=== PATIENT | female | born 1950 | race Caucasian/White ===

== ENCOUNTER 2020-03-23 09:54 | Day surgery (SDC) | payer MEDICARE, SELFPAY ==
--- NOTE | 2020-03-22 11:50 | HO.ANESPROP2 ---
Documented by User: Jennifer Wilhelm 03/22/20 11:51 HPI - Anesthesia Eval Consult details Narrative: 69yo F for Colonoscopy PMFSH Past Medical History Medical History Arthritis Asthma GERD (gastroesophageal reflux disease) Headache History of diverticulitis Insomnia Major depressive disorder Osteopenia Surgical History Surgical History Hx of hysterectomy Social History Social History Smoking Status: Never smoker Use of substances other than those prescribed or required for medical reasons: No Advance Directives: No Meds Allergies Allergy/AdvReac Type Severity Reaction Status Date / Time No Known Allergies Allergy Verified 03/22/20 11:52 Home Medications Medication Instructions Recorded Confirmed Type acetaminophen 500 mg PO Q6H PRN 03/19/20 03/19/20 History albuterol sulfate [ProAir HFA] 2 puff INHALATION Q6H PRN 03/19/20 03/19/20 History amitriptyline 1 tab PO DAILY 03/19/20 03/19/20 History calcium carbonate-vitamin D3 1 tab PO DAILY 03/19/20 03/19/20 History fluticasone propionate [Flovent 1 puff PO BID 03/19/20 03/19/20 History HFA] omeprazole 1 cap PO DAILY 03/19/20 03/19/20 History Exam Exam Date and Time: March 22, 2020 1150 Assessment and Plan Assessment Anesthesia Assessment: Chart Reviewed Documented by User: Sunita Henriquez 03/23/20 12:15 [facility] Past Medical History Medical History Arthritis Asthma GERD (gastroesophageal reflux disease) Headache History of diverticulitis Insomnia Major depressive disorder Osteopenia Family History Family history of problems with anesthesia: No Surgical History Surgical History Hx of hysterectomy History of Problems with Anesthesia: No Social History Social History Smoking Status: Never smoker Use of substances other than those prescribed or required for medical reasons: No Advance Directives: No Meds Allergies Allergy/AdvReac Type Severity Reaction Status Date / Time No Known Allergies Allergy Verified 03/22/20 11:52 Home Medications Medication Instructions Recorded Confirmed Type acetaminophen 500 mg PO Q6H PRN 03/19/20 03/19/20 History albuterol sulfate [ProAir HFA] 2 puff INHALATION Q6H PRN 03/19/20 03/19/20 History amitriptyline 1 tab PO DAILY 03/19/20 03/19/20 History calcium carbonate-vitamin D3 1 tab PO DAILY 03/19/20 03/19/20 History fluticasone propionate [Flovent 1 puff PO BID 03/19/20 03/19/20 History HFA] omeprazole 1 cap PO DAILY 03/19/20 03/19/20 History Exam Height,Weight and Vital Signs: Vital Signs Temp Pulse Resp BP Pulse Ox 03/23/20 10:54 97.4 F 82 16 137/72 100 Airway Mallampati Class: II TM Dist: >3cm Neck ROM: Full Partial: Lower Heart: RRR Lungs: CTAB Assessment and Plan Assessment Anesthesia Assessment: Anesthesia Plan Discussed Final Anesthetic Review NPO: Yes ASA Class: II Final Preanesthetic Review: No Changes in Pt Med Stat, Meds/Allgs Chart Reviewed, Consent Obtained/Reviewed and Anes Risks/Benef Reviewed Patient Risk: Low Procedure Risk: Low Anesthetic Plan Anesthetic Plan: MAC: Disposition: Standard PACU
[2020-03-23 10:54] VITALS: BP 137/72; PULSE 82; RESP 16; TEMP 36.3; O2SAT 100
[2020-03-23] MEDS: Lactated Ringers 1,000 ML 100 ML IVCONT (10:57)
[2020-03-23 11:09] VITALS: BMI 23.0
--- NOTE | 2020-03-23 12:48 | PM.PROC ---
Brief Operative Note Date of procedure: 03/23/20 Pre-op diagnosis: colonoscopy Post-op diagnosis: other (Colonic polyp, sigmoid divertculi--extrinsic adhesions) Procedure: COLONOSCOPY WITH EXCISIONAL POLYPECTOMY--CBX FORCEPS. Patient left to back to right to back to left. Anesthesia: MAC (MAXIM EDWARD) Surgeon: Galina William Estimated blood loss (mL): 5 Pathology: other (Transverse colon polyp) Condition: stable Disposition: PACU
[2020-03-23 13:40] VITALS: BP 97/43; PULSE 86; RESP 12; TEMP 36.3; O2SAT 100
[2020-03-23 13:55] VITALS: BP 122/65; PULSE 90; RESP 16; O2SAT 100
--- NOTE | 2020-03-26 12:27 | OP_ITS ---
SURGEON: Galina William MD PREOPERATIVE DIAGNOSIS: See below POSTOPERATIVE DIAGNOSIS: Colonic Polyp. PROCEDURE PERFORMED: Colonoscopy with excisional polypectomy using cold biopsy forceps. ESTIMATED BLOOD LOSS: Minimal blood loss. COMPLICATIONS:NONE ANESTHESIA: Monitored. ASSISTANTS: No mechanic assistant. SPECIMENS: Specimen removed; polyp, transverse colon. PREOPERATIVE DIAGNOSES: The patient is referred to our office for colon cancer screening. She has underlying medical histories as listed. 1. Mild asthma. 2. Gastroesophageal reflux disease (she is taking omeprazole daily). Surgical history is pertinent for hysterectomy in the past. 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 ANESTHESIOLOGISTS: Gabbi Lei CRNA/Dr. Henriquez. FINDINGS: Digital rectal exam revealed no specific lesion. Video colonoscope was introduced without difficulty; however, from the start, the colon was somewhat telescoped in the region of the rectosigmoid, requiring slow movement through this area, extrinsic abdominal pressure to facilitate movement as we progressed. The patient was initially started on her left side, moved to her back, and to her right side and back to the back, and to the left side. We were able to complete the exam to just above the ileocecal valve. In the distance, we could see we had a 50% view of the cecal cap itself. Prep was good. There was a polyp visualized in the transverse colon which we were able to remove it excisionally with cold bx forceps. Pathology on this polyp is at the time of this dictation Tubular adenoma with no high-grade dysplasia. Scope continued to be withdrawn. . Air and fluid were suctioned out. Anorectal verge was clear. PLAN AND CURRENT RECOMMENDATIONS: Repeat asymptomatic screening in a patient with a tubular adenoma will be 5 years. GRAFT OR IMPLANTS: No grafts or implants. CONDITION: Postprocedure, stable. Galina William MD MEN/MODL / [id number] [facility]
== END 2020-03-23 15:10 | disposition home or self-care (01) ==
PROVIDERS: PCP Hospitalist; Visit Provider Internal Medicine Gastroenterology
PROC: 0DJD8ZZ Inspection of Lower Intestinal Tract, Via Natural or Artificial Opening Endoscopic (ICD-10-PCS; CPT 45378; principal; 2020-03-23 10:50)
DX: Z12.11 Encounter for screening for malignant neoplasm of colon (principal); D12.3 Benign neoplasm of transverse colon; K57.30 Diverticulosis of large intestine without perforation or abscess without bleeding; K66.0 Peritoneal adhesions (postprocedural) (postinfection); K21.9 Gastro-esophageal reflux disease without esophagitis; J45.909 Unspecified asthma, uncomplicated; Z79.899 Other long term (current) drug therapy
CPT/HCPCS: 45380; 88305; J2765

== ENCOUNTER 2020-05-05 08:51 | Outpatient (REF) | payer MEDICARE, SELFPAY ==
[2020-05-05 10:35] LABS: Glucose Urine UA NEG (NEG); Leukocyte Esterase Urine NEG (NEG); Nitrite Urine NEG (NEG); Specific Gravity - Urine <= 1.005 (1.005-1.025); Urine Blood NEG (NEG); Urine Ketones NEG (NEG); Urine Protein NEG (NEG-TRACE)
[2020-05-05 10:40] LABS: Appearance Urine CLEAR; Color Urine STRAW
[2020-05-05 10:49] LABS: Hematocrit 43.8 % (37-47); Hemoglobin 14.2 g/dl (12.0-16.0); Mean Corpuscular HGB Conc 32.4 g/dl (31.0-35.0); Mean Corpuscular Hemoglobin 31.6 pg (27.0-33.0); Mean Corpuscular Volume 97.3 fL (80-98); Platelet Count 279 X10*3/uL (160-400); Red Cell Distribution Width 13.2 % (11.0-16.0); White Blood Count 5.2 X10*3/uL (4.8-10.8)
[2020-05-05 11:01] LABS: Alanine Aminotransferase 23 U/L (0-31); Albumin Level 4.7 g/dL (3.5-5.0); Alkaline Phosphatase 85 U/L (39-117); Anion Gap 12 (12-20); Aspartate Amino Transferase 22 U/L (5-31); Bilirubin Direct 0.2 mg/dL (0.0-0.5); Bilirubin Total 0.6 mg/dL (0.0-1.0); Blood Urea Nitrogen 12 mg/dL (9-16); Calcium 9.5 mg/dL (8.4-10.2); Carbon Dioxide 27 mmol/L (22-29); Chloride 103 mmol/L (96-108); Cholesterol 200 mg/dL; Estimated Glomerular Filt Rate > 60; Glucose Random 90 mg/dL (60-115); HDL Cholesterol 89 mg/dL; LDL Cholesterol Calculated 96 mg/dl; Potassium 4.3 mmol/l (3.3-5.1); Sodium 138 mmol/L (135-145); Total Protein 7.7 g/dL (6.5-8.0); Triglycerides 75 mg/dL
[2020-05-05 11:10] LABS: Thyroid Stimulating Hormone 0.87 uIU/mL (0.32-4.0)
== END 2020-05-05 08:52 | disposition home or self-care (01) ==
LOC: HO.LAB 08:51
PROVIDERS: Visit Provider Hospitalist
DX: Z00.00 Encounter for general adult medical examination without abnormal findings (principal)
CPT/HCPCS: 36415; 80048; 80061; 80076; 81003; 84443; 85027

== ENCOUNTER 2020-12-07 10:07 | Outpatient (REF) | payer MEDICARE, SELFPAY ==
--- NOTE | ~2020-12-07 | MM_ITS ---
EXAMINATION: MM SCREENING DIGITAL BREAST TOMOSYNTHESIS, BILATERAL CLINICAL INFORMATION: Screening. Asymptomatic. The lifetime risk of breast cancer based on the Tyrer-Cuzick Model is 2%. COMPARISON: Mammography: 12/02/2019, 11/26/2018, outside exam 11/12/2017 ([facility]). TECHNIQUE: Digital breast tomosynthesis is performed in both the craniocaudal and mediolateral oblique views along with computer-aided detection (CAD). Synthesized 2D images are generated from the tomosynthesis. FINDINGS: There are scattered areas of fibroglandular density (ACR BI-RADS breast composition Category b). There are no significant masses, abnormal calcifications, or other abnormalities. Parenchymal pattern is similar to prior studies. No developing density. No significant changes. MM/MM tomosynthesis screening BI IMPRESSION: No mammographic evidence of malignancy. ASSESSMENT: BI-RADS 1: Negative RECOMMENDATION: Routine annual mammography screening. This patient's information was entered into a reminder system with a target due date for their next mammogram.
--- NOTE | ~2020-12-07 | MM_ITS ---
EXAMINATION: BONE DENSITOMETRY CLINICAL INDICATION: Screening for osteoporosis. COMPARISON: Baseline BD dated 09/24/2018. TECHNIQUE: Using a SMITH (formerly [employer]) DXA System (software version: 13.1) manufactured by [employer], dual-energy x-ray absorptiometry was performed of the lumbar spine and left hip. The images are of good technical quality. Summary results are attached. FINDINGS: AP SPINE L1-L4: Current: BMD 1.248 g/cm2, Z-score 2.6, T-score 0.6, normal, 3.7% increase from baseline (<5% change is not significant). Baseline: BMD 1.203 g/cm2. LEFT FEMUR, NECK: Current: BMD 0.685 g/cm2, Z-score -0.6, T-score -2.5, osteoporosis. Baseline: BMD 0.781 g/cm2. LEFT FEMUR, TOTAL: Current: BMD 0.832 g/cm2, Z-score 0.3, T-score -1.4, osteopenia, 11.1% decrease from baseline (<5% change is not significant). Baseline: BMD 0.936 g/cm2. IDENTIFIED RISK FACTORS: Menopause, hysterectomy. HISTORY OF FRACTURE: None listed. MEDICATIONS: Calcium supplements or multivitamin, vitamin D. MM/XR DEXA axial skeleton IMPRESSION: 1. DIAGNOSIS: Osteoporosis based on the lowest T-score value of -2.5 in the femoral neck applying World Health Organization criteria. 2. 10-YEAR FRACTURE RISK PREDICTION, FRAX: Major osteoporotic fracture (clinical spine, forearm, hip or shoulder) 8.5%. Hip fracture 2.2%. 3. Treatment Recommendations: NOF guidelines recommend consideration for treatment in postmenopausal women and men age 50 and older presenting with the following: -A hip or vertebral (clinical or morphometric) fracture. -T-score less than or equal to -2.5 at the femoral neck or spine after appropriate evaluation to exclude secondary causes. -Low bone mass at the hip or spine and a 10-year fracture probability by FRAX of greater than or equal to 3% for hip fracture or greater than or equal to 20% for major osteoporotic fracture based on the [place] adapted WHO algorithm. 4. Other Recommendations: All treatment decisions require clinical judgment and consideration of individual patient factors, including patient preferences, comorbidities, previous drug use, risk factors not captured in the FRAX model (e.g. frailty, falls, vitamin D deficiency, increased bone turnover, interval significant decline in bone density) and possible under or overestimation of fracture risk by FRAX. Additional medical evaluation for secondary cause of low bone mineral density may be appropriate. FUTURE SCAN RECOMMENDATION: People with diagnosed cases of osteoporosis or at high risk for fracture should have regular bone mineral density tests. For patients eligible for Medicare, routine testing is allowed once every 2 years. The testing frequency can be increased to one year for patients who have rapidly progressing disease, those who are receiving or discontinuing medical therapy to restore bone mass, or have additional risk factors.
== END 2020-12-07 10:08 | disposition home or self-care (01) ==
LOC: HO.MAMMO 10:07
PROVIDERS: Visit Provider Hospitalist
DX: Z12.31 Encounter for screening mammogram for malignant neoplasm of breast (principal); Z13.820 Encounter for screening for osteoporosis; M81.0 Age-related osteoporosis without current pathological fracture; Z78.0 Asymptomatic menopausal state; Z98.890 Other specified postprocedural states; Z79.899 Other long term (current) drug therapy
CPT/HCPCS: 77063; 77067; 77080

== ENCOUNTER → 2021-09-21 10:20 | Outpatient (BNVA) | payer MEDICARE, SELFPAY | PROVIDERS: Visit Provider Obstetrics & Gynecology | DX: Z01.419 Encounter for gynecological examination (general) (routine) without abnormal findings (principal) ==

== ENCOUNTER → 2021-11-14 08:50 | Outpatient (BNVA) | payer MEDICARE, SELFPAY | PROVIDERS: PCP Hospitalist; Visit Provider Surgery | DX: R10.9 Unspecified abdominal pain (principal) | CPT/HCPCS: 99202 ==

== ENCOUNTER 2021-12-09 10:33 | Outpatient (REF) | payer MEDICARE, SELFPAY ==
--- NOTE | ~2021-12-09 | MM_ITS ---
EXAMINATION: MM SCREENING DIGITAL BREAST TOMOSYNTHESIS, BILATERAL CLINICAL INFORMATION: Screening. Asymptomatic. The lifetime risk of breast cancer based on the Tyrer-Cuzick Model is 3%. COMPARISON: Mammography: 12/07/2020, 12/02/2019, 11/26/2018 TECHNIQUE: Digital breast tomosynthesis is performed in both the craniocaudal and mediolateral oblique views along with computer-aided detection (CAD). Synthesized 2D images are generated from the tomosynthesis. FINDINGS: There are scattered areas of fibroglandular density (ACR BI-RADS breast composition Category b). There are no significant masses, abnormal calcifications, or other abnormalities. Parenchymal pattern is similar to prior studies. No developing density. No interval architectural abnormality. MM/MM tomosynthesis screening BI IMPRESSION: No mammographic evidence of malignancy. ASSESSMENT: BI-RADS 1: Negative RECOMMENDATION: Routine annual mammography screening. This patient's information was entered into a reminder system with a target due date for their next mammogram.
== END 2021-12-09 10:34 | disposition home or self-care (01) ==
LOC: HO.MAMMO 10:33
PROVIDERS: PCP Hospitalist; Visit Provider Obstetrics & Gynecology
DX: Z12.31 Encounter for screening mammogram for malignant neoplasm of breast (principal)
CPT/HCPCS: 77063; 77067